=== PATIENT | male | born 1960 | race Caucasian/White ===

== ENCOUNTER 2017-09-04 19:00 | Inpatient (IN) | payer OTHER ==
[2017-09-04] MEDS ORDERED: DEXTROSE 50% 50 ML SYRINGE IV ×2 (22:30)
[2017-09-04] MEDS ORDERED: NITROGLYCERIN (SL) 0.4 MG TAB SL (22:30)
[2017-09-04] MEDS ORDERED: NACL 0.9% 3 ML SYG IV (22:30)
[2017-09-04] MEDS ORDERED: GLUCAGON 1 MG INJ IM (22:30)
[2017-09-04] MEDS ORDERED: ONDANSETRON 4 MG TAB PO (22:30)
[2017-09-04] MEDS ORDERED: BISACODYL (EC) 5 MG TAB PO (22:30)
[2017-09-04] MEDS ORDERED: GLUCOSE GEL 15 GRAM TUBE BUCCAL (22:30)
[2017-09-04] MEDS ORDERED: ALBUTEROL/IPRATROPIUM (NEB) 3 ML AMP HHN (22:30)
[2017-09-04] MEDS ORDERED: ACETAMINOPHEN 325 MG TAB PO (22:30)
[2017-09-04] MEDS ORDERED: GLUCOSE GEL 15 GRAM TUBE PO ×2 (22:30)
[2017-09-04] MEDS ORDERED: DOCUSATE SODIUM 100 MG CAP PO (22:30)
[2017-09-04 23:10] LABS: ADD MAN DIFF? NO
[2017-09-04 23:12] LABS: WHITE BLOOD COUNT 9.3 10^3/ul (4.8-10.8)
[2017-09-04 23:12] LABS: BASOPHIL # 0.1 10^3/ul (0.0-0.1); BASOPHILS % 1.1 % (0.0-2.0); EOSINOPHILS # 0.4 10^3/ul (0.0-0.5); EOSINOPHILS % 4.1 % (0.0-7.0); HEMATOCRIT 32.3 % (42.0-52.0); HEMOGLOBIN 10.7 g/dl (14.0-18.0); LYMPHOCYTES # 0.9 10^3/ul (0.8-2.9); LYMPHOCYTES % 10.2 % (15.0-51.0); MEAN CORPUSCULAR HEMOGLOBIN 32.3 pg (29.0-33.0); MEAN CORPUSCULAR HGB CONC 33.1 g/dl (32.0-37.0); MEAN CORPUSCULAR VOLUME 97.6 fl (82.0-101.0); MEAN PLATELET VOLUME 10.8 fl (7.4-10.4); MONOCYTES % 10.3 % (0.0-11.0); NEUTROPHIL # 6.8 10^3/ul (1.6-7.5); NEUTROPHILS % 73.8 % (39.0-77.0); PLATELET COUNT 154 10^3/UL (140-415); RED BLOOD COUNT 3.31 10^6/ul (4.70-6.10); RED CELL DISTRIBUTION WIDTH 14.4 % (11.5-14.5)
[2017-09-04] MEDS: ACETAMINOPHEN 325 MG TAB PO (23:17)
[2017-09-04] MEDS: CEPASTAT LOZENGE MT (23:17)
[2017-09-04 23:31] LABS: ALANINE AMINOTRANSFERASE 25 IU/L (13-69); ALBUMIN 3.8 g/dl (3.3-4.9); ALBUMIN/GLOBULIN RATIO 1.26; ALKALINE PHOSPHATASE 223 IU/L (42-121); ANION GAP 16 (8-16); ASPARTATE AMINO TRANSFERASE 19 IU/L (15-46); BILIRUBIN,INDIRECT 0.1 mg/dl (0-1.1); BILIRUBIN,TOTAL 0.1 mg/dl (0.2-1.3); BLOOD UREA NITROGEN 46 mg/dl (7-20); CALCIUM 9.1 mg/dl (8.4-10.2); CARBON DIOXIDE 32 mmol/L (21-31); CHLORIDE 92 mmol/L (97-110); CREATINE KINASE 83 IU/L (23-200); CREATININE 5.43 mg/dl (0.61-1.24); GLUCOSE 163 mg/dl (70-220); MAGNESIUM 1.8 mg/dl (1.7-2.5); POTASSIUM 4.2 mmol/L (3.5-5.1); SODIUM 136 mmol/L (135-144); TOTAL PROTEIN 6.8 g/dl (6.1-8.1)
[2017-09-04 23:43] LABS: CK INDEX 5.6; CK-MB 4.67 ng/ml (0.0-2.4); TROPONIN-I 0.073 ng/ml (0.000-0.120)
[2017-09-04 23:56] LABS: B-TYPE NATRIURETIC PEPTIDE 65600 PG/ML (0-125)
[2017-09-05] MEDS ORDERED: hydrALAzine 20 MG INJ IV (01:00)
[2017-09-05] MEDS: ACCU-CHEK XX (01:25)
[2017-09-05] MEDS: ZOLPIDEM 5 MG TAB PO (01:26)
[2017-09-05] MEDS ORDERED: INSULIN GLARGINE [LANTus] (100 UNITS/ML) SYG SC (07:00)
[2017-09-05] MEDS: INSULIN ASPART [NOVOLOG] 3 ML PEN SC ×4 (08:00→20:37)
[2017-09-05] MEDS: CEPASTAT LOZENGE MT ×2 (08:05→17:50)
[2017-09-05] MEDS: DILTIAZEM (CD) 120 MG CAP PO ×2 (08:05→23:22)
[2017-09-05] MEDS: ACETAMINOPHEN 325 MG TAB PO ×3 (08:14→20:41)
[2017-09-05] MEDS: INSULIN GLARGINE [LANTus] (100 UNITS/ML) SYG SC (08:14)
[2017-09-05 09:34] LABS: ADD MAN DIFF? NO
[2017-09-05 09:38] LABS: WHITE BLOOD COUNT 8.3 10^3/ul (4.8-10.8)
[2017-09-05 09:38] LABS: BASOPHILS % 0.5 % (0.0-2.0); EOSINOPHILS # 0.4 10^3/ul (0.0-0.5); EOSINOPHILS % 4.7 % (0.0-7.0); HEMATOCRIT 33.9 % (42.0-52.0); HEMOGLOBIN 10.9 g/dl (14.0-18.0); LYMPHOCYTES # 0.8 10^3/ul (0.8-2.9); LYMPHOCYTES % 10.2 % (15.0-51.0); MEAN CORPUSCULAR HEMOGLOBIN 31.6 pg (29.0-33.0); MEAN CORPUSCULAR HGB CONC 32.2 g/dl (32.0-37.0); MEAN CORPUSCULAR VOLUME 98.3 fl (82.0-101.0); MEAN PLATELET VOLUME 11.3 fl (7.4-10.4); MONOCYTE # 0.8 10^3/ul (0.3-0.9); MONOCYTES % 9.5 % (0.0-11.0); NEUTROPHIL # 6.2 10^3/ul (1.6-7.5); NEUTROPHILS % 74.5 % (39.0-77.0); PLATELET COUNT 138 10^3/UL (140-415); POSITIVE DIFF @See below; RED BLOOD COUNT 3.45 10^6/ul (4.70-6.10); RED CELL DISTRIBUTION WIDTH 14.6 % (11.5-14.5)
[2017-09-05 10:07] LABS: PHOSPHORUS 6.8 mg/dl (2.5-4.9)
[2017-09-05 10:10] LABS: ALANINE AMINOTRANSFERASE 26 IU/L (13-69); ALBUMIN 3.7 g/dl (3.3-4.9); ALBUMIN/GLOBULIN RATIO 1.23; ALKALINE PHOSPHATASE 208 IU/L (42-121); ANION GAP 18 (8-16); ASPARTATE AMINO TRANSFERASE 21 IU/L (15-46); BILIRUBIN,INDIRECT 0.1 mg/dl (0-1.1); BILIRUBIN,TOTAL 0.1 mg/dl (0.2-1.3); BLOOD UREA NITROGEN 50 mg/dl (7-20); CALCIUM 9.3 mg/dl (8.4-10.2); CARBON DIOXIDE 31 mmol/L (21-31); CHLORIDE 93 mmol/L (97-110); CHOL/HDL RATIO 3.2 RATIO; CHOLESTEROL 98 mg/dl (100-200); CREATININE 6.09 mg/dl (0.61-1.24); GLUCOSE 103 mg/dl (70-220); HDL CHOLESTEROL 30 mg/dl (30-78); LDL CHOLESTEROL,CALCULATED 49 mg/dl; POTASSIUM 4.6 mmol/L (3.5-5.1); SODIUM 137 mmol/L (135-144); TOTAL PROTEIN 6.7 g/dl (6.1-8.1); TRIGLYCERIDES 93 mg/dl (0-149)
[2017-09-05 10:43] LABS: HEMOGLOBIN A1C 6.3 % (0-5.9)
[2017-09-05 11:08] LABS: CREATINE KINASE 77 IU/L (23-200)
[2017-09-05 11:22] LABS: CK INDEX 5.2; CK-MB 4.04 ng/ml (0.0-2.4); TROPONIN-I 0.078 ng/ml (0.000-0.120)
[2017-09-05 13:24] LABS: HEPATITIS B SURFACE ANTIGEN NEGATIVE (NEGATIVE)
[2017-09-05 13:42] LABS: HEPATITIS B SURFACE ANTIBODY NEGATIVE (NEGATIVE)
[2017-09-06] MEDS: ACCU-CHEK XX (02:50)
[2017-09-06 05:32] LABS: ADD MAN DIFF? NO
[2017-09-06 05:39] LABS: BASOPHIL # 0.1 10^3/ul (0.0-0.1); EOSINOPHILS # 0.5 10^3/ul (0.0-0.5); EOSINOPHILS % 5.4 % (0.0-7.0); HEMATOCRIT 33.5 % (42.0-52.0); HEMOGLOBIN 10.7 g/dl (14.0-18.0); LYMPHOCYTES # 0.8 10^3/ul (0.8-2.9); LYMPHOCYTES % 8.9 % (15.0-51.0); MEAN CORPUSCULAR HEMOGLOBIN 31.8 pg (29.0-33.0); MEAN CORPUSCULAR HGB CONC 31.9 g/dl (32.0-37.0); MEAN CORPUSCULAR VOLUME 99.7 fl (82.0-101.0); MEAN PLATELET VOLUME 11.2 fl (7.4-10.4); MONOCYTES % 10.4 % (0.0-11.0); NEUTROPHIL # 6.9 10^3/ul (1.6-7.5); NEUTROPHILS % 73.9 % (39.0-77.0); PLATELET COUNT 146 10^3/UL (140-415); RED BLOOD COUNT 3.36 10^6/ul (4.70-6.10); RED CELL DISTRIBUTION WIDTH 14.6 % (11.5-14.5)
[2017-09-06 05:39] LABS: WHITE BLOOD COUNT 9.4 10^3/ul (4.8-10.8)
[2017-09-06 05:50] LABS: PHOSPHORUS 5.4 mg/dl (2.5-4.9)
[2017-09-06 06:21] LABS: ANION GAP 13 (8-16); BLOOD UREA NITROGEN 32 mg/dl (7-20); CALCIUM 9.4 mg/dl (8.4-10.2); CARBON DIOXIDE 31 mmol/L (21-31); CHLORIDE 100 mmol/L (97-110); CREATININE 4.64 mg/dl (0.61-1.24); GLUCOSE 115 mg/dl (70-220); POTASSIUM 4.2 mmol/L (3.5-5.1); SODIUM 140 mmol/L (135-144)
[2017-09-06] MEDS: ACETAMINOPHEN 325 MG TAB PO ×2 (07:55→14:00)
[2017-09-06] MEDS: CEPASTAT LOZENGE MT ×2 (07:55→14:00)
[2017-09-06] MEDS: INSULIN ASPART [NOVOLOG] 3 ML PEN SC ×4 (07:59→20:32)
[2017-09-06] MEDS: DILTIAZEM (CD) 120 MG CAP PO ×2 (08:03→20:31)
[2017-09-06] MEDS: INSULIN GLARGINE [LANTus] (100 UNITS/ML) SYG SC (08:05)
[2017-09-06] MEDS: LISINOPRIL 20 MG TAB PO (13:54)
[2017-09-07] MEDS: ACCU-CHEK XX (02:00)
[2017-09-07] MEDS: DILTIAZEM (CD) 120 MG CAP PO ×2 (07:56→12:21)
[2017-09-07] MEDS: LISINOPRIL 20 MG TAB PO ×2 (07:57→12:21)
[2017-09-07] MEDS: INSULIN ASPART [NOVOLOG] 3 ML PEN SC ×2 (08:00→12:17)
[2017-09-07 08:17] LABS: PHOSPHORUS 6.2 mg/dl (2.5-4.9)
[2017-09-07] MEDS: INSULIN GLARGINE [LANTus] (100 UNITS/ML) SYG SC (08:26)
[2017-09-07] MEDS: CEPASTAT LOZENGE MT (11:06)
[2017-09-07] MEDS: ACETAMINOPHEN 325 MG TAB PO (11:07)
== END 2017-09-07 14:16 | disposition home or self-care (01) | DRG 291 ==
LOC: MS4 19:00
PROC: 5A1D70Z Performance of Urinary Filtration, Intermittent, Less than 6 Hours Per Day (ICD-10-PCS; principal; 2017-09-05)
PROC: 5A1D70Z Performance of Urinary Filtration, Intermittent, Less than 6 Hours Per Day (ICD-10-PCS; 2017-09-07)
DX: I13.0 Hypertensive heart and chronic kidney disease with heart failure and stage 1 through stage 4 chronic kidney disease, or unspecified chronic kidney disease (principal); N18.6 End stage renal disease; I50.22 Chronic systolic (congestive) heart failure; E87.70 Fluid overload, unspecified; D64.9 Anemia, unspecified; E11.22 Type 2 diabetes mellitus with diabetic chronic kidney disease; E27.8 Other specified disorders of adrenal gland; Z87.891 Personal history of nicotine dependence; N28.89 Other specified disorders of kidney and ureter; E83.9 Disorder of mineral metabolism, unspecified; E87.79 Other fluid overload
CPT/HCPCS: 71045; 76775; 80048; 80053; 80061; 82550; 82553; 82962; 83036; 83735; 83880; 84100; 84443; 84484; 85025; 86706; 87340; 90935; 93005; 93306

== ENCOUNTER 2017-09-13 15:26 | Outpatient (CLI) | payer OTHER | END 2017-09-13 16:53 | disposition home or self-care (01) | LOC: DCC 15:26 | DX: I12.0 Hypertensive chronic kidney disease with stage 5 chronic kidney disease or end stage renal disease (principal); N18.6 End stage renal disease; Z99.2 Dependence on renal dialysis; E11.8 Type 2 diabetes mellitus with unspecified complications; N28.89 Other specified disorders of kidney and ureter; I50.9 Heart failure, unspecified | CPT/HCPCS: G0463 ==

== ENCOUNTER 2018-01-03 09:38 | Day surgery (SDC) | payer OTHER ==
[2018-01-03 11:53] LABS: POTASSIUM 5.5 mmol/L (3.5-5.1)
[2018-01-03] MEDS ORDERED: HEPARIN 1000 UNITS/NS (A-LINE) 1,000 ML (11:54)
[2018-01-03] MEDS ORDERED: IODIXANOL LOCM 50 ML BTL (11:54)
[2018-01-03] MEDS ORDERED: LIDOCAINE 2% (MDV) 20 ML INJ (11:54)
[2018-01-03] MEDS ORDERED: FENTAnyl 50 MCG/ML VIAL (11:55)
[2018-01-03] MEDS ORDERED: MIDAZOLAM 1 MG/ML 2 ML INJ (11:55)
[2018-01-03] MEDS ORDERED: IODIXANOL LOCM 100 ML BTL ×2 (12:14→12:46)
== END 2018-01-03 15:17 | disposition home or self-care (01) ==
LOC: CCL 09:38 → SDS 09:38 → CCL 15:17
DX: T82.898A Other specified complication of vascular prosthetic devices, implants and grafts, initial encounter (principal); Y84.1 Kidney dialysis as the cause of abnormal reaction of the patient, or of later complication, without mention of misadventure at the time of the procedure; I12.0 Hypertensive chronic kidney disease with stage 5 chronic kidney disease or end stage renal disease; N18.6 End stage renal disease; E11.9 Type 2 diabetes mellitus without complications
CPT/HCPCS: 36902; 82962; 84132

== ENCOUNTER 2018-06-04 13:54 | Day surgery (SDC) | payer OTHER ==
[2018-06-04] MEDS ORDERED: SOD CHLORIDE 0.9% 500 ML IV (15:00)
[2018-06-04 15:16] LABS: POTASSIUM 5.5 mmol/L (3.5-5.1)
[2018-06-04] MEDS ORDERED: ACETAMINOPHEN 325 MG TAB PO (16:00)
== END 2018-06-04 16:46 | disposition home or self-care (01) ==
LOC: CCL 13:54 → SDS 13:54 → CCL 16:46
DX: T82.898A Other specified complication of vascular prosthetic devices, implants and grafts, initial encounter (principal); Y84.1 Kidney dialysis as the cause of abnormal reaction of the patient, or of later complication, without mention of misadventure at the time of the procedure; I12.0 Hypertensive chronic kidney disease with stage 5 chronic kidney disease or end stage renal disease; N18.6 End stage renal disease; E11.9 Type 2 diabetes mellitus without complications
CPT/HCPCS: 36902; 82962; 84132